=== PATIENT | male | born 1965 | race Caucasian/White ===

== ENCOUNTER 2023-08-18 22:13 | Emergency (ER) | payer OTHER ==
[~2023-08-18] VITALS: Ht 177.8 cm; Wt 94.8 kg
[2023-08-18 22:33] LABS: BASO % 0.7 % (0.0-1.0); EOS # 0.4 10*3/uL (0.0-0.4); EOS % 6.8 % (1.0-4.0); HEMATOCRIT 41.5 % (42.0-52.0); LYMPH # 2.5 10*3/uL (1.3-4.4); MEAN CELL VOLUME 88.9 fl (80.0-94.0); MEAN CORPUSCULAR HGB 27.8 pg (27.0-31.0); MEAN CORPUSCULAR HGB CONC 31.3 g/dl (33.0-37.0); MONO # 0.5 10*3/uL (0.1-1.0); MONO % 8.2 % (3.0-9.0); NEUT # 2.4 10*3/uL (2.3-7.9); NEUT % 41.1 % (47.0-73.0); PLATELET COUNT AUTOMATED 197 10*3/uL (130-400); RED BLOOD COUNT 4.67 10*6/uL (4.50-5.90); RED CELL DISTRI WIDTH 13.1 % (0-14.5); WHITE BLOOD COUNT 5.9 10*3/uL (4.8-10.8)
[2023-08-18 22:52] LABS: BUN 10 mg/dl (9-23); CHLORIDE 106 mmol/L (98-107); POTASSIUM 4.2 mmol/L (3.4-5.1)
[2023-08-18 22:53] LABS: ETHYL ALCOHOL < 3.0 mg/dl (<3)
[2023-08-18 23:15] LABS: URINE AMPHETAMINES Negative (1000ng/ml); URINE BARBITURATES Negative (200ng/ml); URINE BENZODIAZEPINES Negative (200ng/ml); URINE CANNABINOIDS (THC) Negative (50ng/ml); URINE COCAINE Negative (300ng/ml); URINE METHADONE Negative (300ng/ml); URINE OPIATES Negative (300ng/ml); URINE PHENCYCLIDINE Negative (25ng/ml)
[2023-08-18] MEDS ORDERED: hydrOXYzine pamoate 25 MG CAP PO ONE (23:20)
[2023-08-18] MEDS ORDERED: Ketorolac Tromethamine 30 MG/ML VIAL IM ONE (23:20)
== END 2023-08-19 01:04 ==
LOC: ED 22:13
PROVIDERS: Internal Medicine
DX: M79.671 Pain in right foot (principal); M25.552 Pain in left hip; M25.551 Pain in right hip; Z88.5 Allergy status to narcotic agent; W19.XXXA Unspecified fall, initial encounter

== ENCOUNTER 2024-02-24 17:58 | Emergency (ER) | payer OTHER ==
[~2024-02-24] VITALS: Ht 177.8 cm; Wt 99.8 kg
[2024-02-24 18:51] LABS: BASO % 0.4 % (0.0-1.0); EOS # 0.3 10*3/uL (0.0-0.4); EOS % 2.4 % (1.0-4.0); HEMATOCRIT 40.4 % (42.0-52.0); MEAN CELL VOLUME 84.7 fl (80.0-94.0); MEAN CORPUSCULAR HGB 28.5 pg (27.0-31.0); MEAN CORPUSCULAR HGB CONC 33.7 g/dl (33.0-37.0); MEAN PLATELET VOLUME 10.2 fl (9.6-12.3); MONO # 0.7 10*3/uL (0.1-1.0); NEUT # 7.7 10*3/uL (2.3-7.9); NEUT % 68.1 % (47.0-73.0); PLATELET COUNT AUTOMATED 237 10*3/uL (130-400); RED BLOOD COUNT 4.77 10*6/uL (4.50-5.90); RED CELL DISTRI WIDTH 12.9 % (0-14.5); WHITE BLOOD COUNT 11.2 10*3/uL (4.8-10.8)
[2024-02-24 19:00] LABS: BUN 14 mg/dl (9-23); CHLORIDE 106 mmol/L (98-107); POTASSIUM 3.8 mmol/L (3.4-5.1)
[2024-02-24 19:03] LABS: ETHYL ALCOHOL < 3.0 mg/dl (<3)
[2024-02-24 19:46] LABS: BILIRUBIN 2+ (Negative); BLOOD Negative (Negative); CLARITY Clear (Clear); COLOR Dark Yellow (Yellow); GLUCOSE Negative (Negative); KETONE Trace (Negative); LEUKO ESTERASE Trace (Negative); NITRITE Negative (Negative); PH 5.5 (4.5-8.0); SPECIFIC GRAVITY >= 1.030 (1.001-1.030)
[2024-02-24 19:53] LABS: BACTERIA 1+; MUCOUS 2+
[2024-02-24 19:54] LABS: COARSE GRANULAR CAST 0-2; URINE AMPHETAMINES Negative (1000ng/ml); URINE BARBITURATES Negative (200ng/ml); URINE BENZODIAZEPINES Negative (200ng/ml); URINE CANNABINOIDS (THC) Negative (50ng/ml); URINE COCAINE Negative (300ng/ml); URINE METHADONE Negative (300ng/ml); URINE OPIATES Negative (300ng/ml); URINE PHENCYCLIDINE Negative (25ng/ml)
== END 2024-02-24 20:25 | disposition home or self-care (01) ==
LOC: ED 17:58
PROVIDERS: Physician Assistant Medical
DX: R55 Syncope and collapse (principal); Z88.5 Allergy status to narcotic agent

== ENCOUNTER 2024-05-16 13:46 | Observation (INO) | payer OTHER ==
[~2024-05-16] VITALS: Ht 178 cm; Wt 89.9 kg
[2024-05-16 13:57] VITALS: BP 92/68
[2024-05-16 14:23] LABS: BASO % 0.6 % (0.0-1.0); EOS # 0.1 10*3/uL (0.0-0.4); HEMATOCRIT 43.6 % (42.0-52.0); MEAN CORPUSCULAR HGB 27.6 pg (27.0-31.0); MEAN CORPUSCULAR HGB CONC 32.8 g/dl (33.0-37.0); MEAN PLATELET VOLUME 10.6 fl (9.6-12.3); MONO # 0.5 10*3/uL (0.1-1.0); MONO % 6.8 % (3.0-9.0); NEUT # 4.8 10*3/uL (2.3-7.9); NEUT % 66.4 % (47.0-73.0); PLATELET COUNT AUTOMATED 238 10*3/uL (130-400); RED BLOOD COUNT 5.19 10*6/uL (4.50-5.90); RED CELL DISTRI WIDTH 13.1 % (0-14.5); WHITE BLOOD COUNT 7.2 10*3/uL (4.8-10.8)
[2024-05-16] MEDS ORDERED: SODIUM CHLORIDE 0.9% 1,000 ML IV ONE (14:35)
[2024-05-16 14:45] LABS: ALKALINE PHOSPHATASE 64 U/L (46-116); BUN 13 mg/dl (9-23); CHLORIDE 103 mmol/L (98-107); ETHYL ALCOHOL < 3.0 mg/dl (<3); POTASSIUM 3.1 mmol/L (3.4-5.1); SGPT/ALT 32 U/L (5-49)
[2024-05-16] MEDS ORDERED: POTASSIUM CHLORIDE 20 MEQ TAB PO ONE (15:20)
[2024-05-16 15:27] VITALS: BP 127/74
[2024-05-16 16:53] VITALS: BP 125/75
[2024-05-16] MEDS ORDERED: MIRTAZAPINE15 M2 PO (16:54)
[2024-05-16] MEDS ORDERED: METHYLPHENIDATE5 M1 PO (16:54)
[2024-05-16] MEDS ORDERED: NEURONTIN300 MG PO (16:54)
[2024-05-16] MEDS ORDERED: QUETIAPINE FUM300 M1 PO (16:54)
[2024-05-16] MEDS ORDERED: PANTOPRAZOLE SO40 MG PO (16:55)
[2024-05-16] MEDS ORDERED: NATURE'S BLEND100 M2 PO (16:55)
[2024-05-16] MEDS ORDERED: BENZTROPINE ME0.5 MG PO (16:55)
[2024-05-16] MEDS ORDERED: TRAZODONE100 MG PO (16:55)
[2024-05-16 17:33] LABS: BILIRUBIN Negative (Negative); BLOOD Negative (Negative); CLARITY Clear (Clear); COLOR Dark Yellow (Yellow); GLUCOSE Negative (Negative); KETONE 1+ (Negative); LEUKO ESTERASE Trace (Negative); NITRITE Negative (Negative); SPECIFIC GRAVITY >= 1.030 (1.001-1.030)
[2024-05-16 17:41] LABS: BACTERIA 2+; MUCOUS 1+
[2024-05-16 17:44] LABS: URINE AMPHETAMINES Positive (1000ng/ml); URINE BARBITURATES Negative (200ng/ml); URINE BENZODIAZEPINES Negative (200ng/ml); URINE CANNABINOIDS (THC) Negative (50ng/ml); URINE COCAINE Negative (300ng/ml); URINE METHADONE Negative (300ng/ml); URINE OPIATES Negative (300ng/ml); URINE PHENCYCLIDINE Negative (25ng/ml)
[2024-05-16] MEDS ORDERED: ASPIRIN, CHEWABLE 81 MG TAB PO ONE (18:20)
[2024-05-16 20:24] VITALS: BP 122/86
[2024-05-16 20:35] VITALS: BP 126/84
[2024-05-16] MEDS ORDERED: ACETAMINOPHEN 650 MG SUPP R PRN (20:45)
[2024-05-16] MEDS ORDERED: BISACODYL 10 MG SUPP R PRN (20:45)
[2024-05-16] MEDS ORDERED: Magnesium Hydroxide 30 ML UDC PO PRN (20:45)
[2024-05-16] MEDS ORDERED: ACETAMINOPHEN 325 MG TAB PO PRN (20:45)
[2024-05-16] MEDS ORDERED: BISACODYL 5 MG TAB PO PRN (20:45)
[2024-05-16] MEDS ORDERED: Ondansetron Hydrochloride 4 MG/2 ML VIAL IV PRN (20:45)
[2024-05-16] MEDS ORDERED: Ziprasidone Mesylate 20 MG VIAL IM ONE ×2 (21:25→21:38)
[2024-05-16] MEDS ORDERED: DIAZEPAM 10 MG/2 ML SYR IV ONE (21:25)
[2024-05-16] MEDS ORDERED: DIAZEPAM 2 ML IV ONE (21:37)
[2024-05-16] MEDS ORDERED: Water, Sterile 10 ML VIAL ONE (21:39)
[2024-05-16] MEDS ORDERED: Technetium Tc 99M Tetrofosmi 0.23 MG KIT IJ SCH (21:45)
[2024-05-16] MEDS ORDERED: ATORVASTATIN CALCIUM 80 MG TAB PO SCH (22:00)
[2024-05-17] VITALS: BP 150/59
[2024-05-17 02:20] VITALS: BP 143/97
[2024-05-17] MEDS ORDERED: DIAZEPAM 10 MG/2 ML SYR IV ONE ×2 (02:25→07:55)
[2024-05-17] MEDS ORDERED: Regadenoson 0.4 MG/5 ML SYR IV ONE (05:21)
[2024-05-17] MEDS ORDERED: Pantoprazole Sodium 40 MG TAB PO SCH (06:00)
[2024-05-17 06:27] LABS: BASO % 0.4 % (0.0-1.0); EOS # 0.3 10*3/uL (0.0-0.4); EOS % 5.7 % (1.0-4.0); HEMATOCRIT 41.7 % (42.0-52.0); MEAN CELL VOLUME 84.4 fl (80.0-94.0); MEAN CORPUSCULAR HGB 27.7 pg (27.0-31.0); MEAN CORPUSCULAR HGB CONC 32.9 g/dl (33.0-37.0); MONO # 0.4 10*3/uL (0.1-1.0); MONO % 7.8 % (3.0-9.0); NEUT # 1.9 10*3/uL (2.3-7.9); NEUT % 39.6 % (47.0-73.0); PLATELET COUNT AUTOMATED 197 10*3/uL (130-400); RED BLOOD COUNT 4.94 10*6/uL (4.50-5.90); RED CELL DISTRI WIDTH 13.2 % (0-14.5); WHITE BLOOD COUNT 4.9 10*3/uL (4.8-10.8)
[2024-05-17 07:27] LABS: ALKALINE PHOSPHATASE 55 U/L (46-116); BUN 12 mg/dl (9-23); CHLORIDE 106 mmol/L (98-107); CHOLESTEROL 129 mg/dL (<200); FREE T4 1.46 ng/dl (0.89-1.76); LDL CHOLESTEROL 75 mg/dL (9-159); POTASSIUM 3.6 mmol/L (3.4-5.1); SGPT/ALT 28 U/L (5-49); TOTAL PROTEIN 6.2 gm/dL (6.0-8.0); TRIGLYCERIDES 50 mg/dl (<150)
[2024-05-17 08:00] VITALS: BP 141/91
[2024-05-17] MEDS ORDERED: Thiamine 100 MG TAB PO SCH (10:00)
[2024-05-17] MEDS ORDERED: BENZTROPINE MESYLATE 0.5 MG TAB PO SCH (10:00)
[2024-05-17] MEDS ORDERED: Enoxaparin Sodium 40 MG/0.4 ML SYR SC SCH (10:00)
[2024-05-17] MEDS ORDERED: GABAPENTIN 300 MG CAP PO SCH (10:00)
[2024-05-17] MEDS ORDERED: ASPIRIN ENTERIC COATED 81 MG TAB PO SCH (10:00)
[2024-05-17] MEDS ORDERED: Mirtazapine 15 MG TAB PO SCH (10:00)
[2024-05-17] MEDS ORDERED: QUETIAPINE FUMARATE 300 MG TAB PO SCH (10:00)
[2024-05-17 12:00] VITALS: BP 115/79
[2024-05-17 16:00] VITALS: BP 113/64
[2024-05-17 20:00] VITALS: BP 119/79
[2024-05-18] MEDS ORDERED: ASPIRIN ADULT L81 M2 PO (11:10)
[2024-05-18] MEDS ORDERED: ATORVASTATIN CA80 M1 PO (11:10)
== END 2024-05-17 23:55 | disposition left against medical advice (07) ==
LOC: ED 13:46 → EDHOLD 18:20 → 4E 18:20
PROVIDERS: Internal Medicine; Student in an Organized Health Care Education/Training Program; ADMIT Internal Medicine; ATTEND Internal Medicine
DX: I21.4 Non-ST elevation (NSTEMI) myocardial infarction (principal); R00.0 Tachycardia, unspecified; F15.10 Other stimulant abuse, uncomplicated; E87.6 Hypokalemia; N17.0 Acute kidney failure with tubular necrosis; R73.9 Hyperglycemia, unspecified; R74.01 Elevation of levels of liver transaminase levels; D64.9 Anemia, unspecified; F32.A Depression, unspecified; K21.9 Gastro-esophageal reflux disease without esophagitis; F20.9 Schizophrenia, unspecified; G62.9 Polyneuropathy, unspecified; Z88.5 Allergy status to narcotic agent; Z79.82 Long term (current) use of aspirin; Z79.899 Other long term (current) drug therapy

== ENCOUNTER 2024-05-29 14:09 | Emergency (ER) | payer OTHER ==
[~2024-05-29] VITALS: Wt 86.2 kg
[~2024-05-29 14:09] MED LIST: ASPIRIN ADULT L81 M2 PO; ATORVASTATIN CA80 M1 PO; BENZTROPINE ME0.5 MG PO; DIAZEPAM5 MG PO; DULOXETINE HCL60 MG PO; METHYLPHENIDATE5 M1 PO; MIRTAZAPINE15 M2 PO; NATURE'S BLEND100 M2 PO; NEURONTIN300 MG PO; PANTOPRAZOLE SO40 MG PO; QUETIAPINE FUM300 M1 PO; RAMELTEON8 MG PO; RISPERIDONE1 M1 BC; TRAZODONE100 MG PO; VISTARIL IM
[2024-05-29] MEDS ORDERED: Haloperidol Lactate 5 MG/ML AMP IM ONE (14:15)
[2024-05-29] MEDS ORDERED: diazePAM 10 MG/2 ML SYR IM ONE (14:15)
[2024-05-29 14:31] LABS: BASO % 0.5 % (0.0-1.0); EOS # 0.2 10*3/uL (0.0-0.4); EOS % 2.8 % (1.0-4.0); HEMATOCRIT 42.5 % (42.0-52.0); MEAN CELL VOLUME 84.8 fl (80.0-94.0); MEAN CORPUSCULAR HGB 27.7 pg (27.0-31.0); MEAN CORPUSCULAR HGB CONC 32.7 g/dl (33.0-37.0); MEAN PLATELET VOLUME 10.2 fl (9.6-12.3); MONO # 0.7 10*3/uL (0.1-1.0); MONO % 8.3 % (3.0-9.0); NEUT # 5.2 10*3/uL (2.3-7.9); NEUT % 60.7 % (47.0-73.0); PLATELET COUNT AUTOMATED 241 10*3/uL (130-400); RED BLOOD COUNT 5.01 10*6/uL (4.50-5.90); RED CELL DISTRI WIDTH 12.9 % (0-14.5); WHITE BLOOD COUNT 8.6 10*3/uL (4.8-10.8)
[2024-05-29 14:56] LABS: BUN 13 mg/dl (9-23); CHLORIDE 102 mmol/L (98-107); POTASSIUM 3.8 mmol/L (3.4-5.1)
[2024-05-29 14:57] LABS: ETHYL ALCOHOL < 3.0 mg/dl (<3)
[2024-05-29 20:58] LABS: BILIRUBIN Negative (Negative); BLOOD Negative (Negative); CLARITY Clear (Clear); COLOR Yellow (Yellow); GLUCOSE Negative (Negative); KETONE Trace (Negative); LEUKO ESTERASE Negative (Negative); NITRITE Negative (Negative); PH 7.5 (4.5-8.0); SPECIFIC GRAVITY 1.015 (1.001-1.030); UROBILINOGEN 0.2 E.U./dl (0.0-1.0)
[2024-05-29 21:06] LABS: URINE AMPHETAMINES Positive (1000ng/ml); URINE BARBITURATES Negative (200ng/ml); URINE BENZODIAZEPINES Positive (200ng/ml); URINE CANNABINOIDS (THC) Negative (50ng/ml); URINE COCAINE Negative (300ng/ml); URINE METHADONE Negative (300ng/ml); URINE OPIATES Negative (300ng/ml); URINE PHENCYCLIDINE Negative (25ng/ml)
[2024-05-29 21:10] LABS: BACTERIA TRACE
[2024-05-29] MEDS ORDERED: LORazepam 2 MG TAB PO ONE (22:10)
== END 2024-05-30 09:01 | disposition short-term general hospital (02) ==
LOC: ED 14:09
PROVIDERS: Emergency Medicine
DX: F29 Unspecified psychosis not due to a substance or known physiological condition (principal); Z20.822 Contact with and (suspected) exposure to COVID-19; F19.10 Other psychoactive substance abuse, uncomplicated; Z88.5 Allergy status to narcotic agent; Z79.899 Other long term (current) drug therapy

== ENCOUNTER 2024-06-11 19:57 | Emergency (ER) | payer OTHER ==
[~2024-06-11] VITALS: Ht 182.9 cm; Wt 94.8 kg
[2024-06-11] MEDS ORDERED: MELATONIN5 M6 PO (21:34)
== END 2024-06-11 21:50 | disposition home or self-care (01) ==
LOC: ED 19:57
DX: G62.9 Polyneuropathy, unspecified (principal); G47.00 Insomnia, unspecified; Z79.82 Long term (current) use of aspirin; Z79.899 Other long term (current) drug therapy; Z88.5 Allergy status to narcotic agent

== ENCOUNTER 2024-06-20 10:13 | Emergency (ER) | payer OTHER ==
[~2024-06-20] VITALS: Ht 177.8 cm; Wt 86.2 kg
[~2024-06-20 10:13] MED LIST changes: +MELATONIN5 M6 PO
[2024-06-20] MEDS ORDERED: HYDROXYZINE PAM25 M1 PO (10:56)
[2024-06-20] MEDS ORDERED: BUSPAR15 MG PO (10:57)
[2024-06-20] MEDS ORDERED: TRAZODONE150 MG PO (10:57)
[2024-06-20] MEDS ORDERED: Acetaminophen/Hydrocodone 5 MG/325 MG TABLET PO ONE (11:20)
[2024-06-20] MEDS ORDERED: NAPROSYN500 MG PO (19:46)
== END 2024-06-20 11:39 | disposition home or self-care (01) ==
LOC: ED 10:13
DX: G89.29 Other chronic pain (principal); M79.604 Pain in right leg; M79.605 Pain in left leg; F32.A Depression, unspecified; K21.9 Gastro-esophageal reflux disease without esophagitis; F15.10 Other stimulant abuse, uncomplicated; Z88.5 Allergy status to narcotic agent; Z98.890 Other specified postprocedural states

== ENCOUNTER 2024-06-20 14:30 | Emergency (ER) | payer OTHER ==
[~2024-06-20] VITALS: Ht 177.8 cm; Wt 89.4 kg
[~2024-06-20 14:30] MED LIST changes: +BUSPAR15 MG PO; +HYDROXYZINE PAM25 M1 PO; +TRAZODONE150 MG PO
[2024-06-20 15:25] LABS: BASO % 0.2 % (0.0-1.0); MEAN CELL VOLUME 83.9 fl (80.0-94.0); MEAN CORPUSCULAR HGB 28.1 pg (27.0-31.0); MEAN CORPUSCULAR HGB CONC 33.5 g/dl (33.0-37.0); MEAN PLATELET VOLUME 9.9 fl (9.6-12.3); MONO # 0.4 10*3/uL (0.1-1.0); NEUT # 4.5 10*3/uL (2.3-7.9); NEUT % 77.8 % (47.0-73.0); PLATELET COUNT AUTOMATED 243 10*3/uL (130-400); RED BLOOD COUNT 4.77 10*6/uL (4.50-5.90); RED CELL DISTRI WIDTH 13.6 % (0-14.5); WHITE BLOOD COUNT 5.8 10*3/uL (4.8-10.8)
[2024-06-20 15:54] LABS: BUN 18 mg/dl (9-23); CHLORIDE 105 mmol/L (98-107); CPK 72 U/L (34-171); POTASSIUM 3.7 mmol/L (3.4-5.1)
[2024-06-20 15:55] LABS: ETHYL ALCOHOL < 3.0 mg/dl (<3)
[2024-06-20 16:15] LABS: BILIRUBIN Negative (Negative); BLOOD Negative (Negative); CLARITY Clear (Clear); COLOR Yellow (Yellow); GLUCOSE Negative (Negative); KETONE Negative (Negative); LEUKO ESTERASE Negative (Negative); NITRITE Negative (Negative); PH 5.5 (4.5-8.0); UROBILINOGEN 0.2 E.U./dl (0.0-1.0)
[2024-06-20 16:23] LABS: URINE AMPHETAMINES Negative (1000ng/ml); URINE BARBITURATES Negative (200ng/ml); URINE BENZODIAZEPINES Negative (200ng/ml); URINE CANNABINOIDS (THC) Negative (50ng/ml); URINE COCAINE Negative (300ng/ml); URINE METHADONE Negative (300ng/ml); URINE OPIATES Positive (300ng/ml); URINE PHENCYCLIDINE Negative (25ng/ml)
[2024-06-20 16:43] LABS: BACTERIA TRACE; MUCOUS 1+
[2024-06-20] MEDS ORDERED: IBUPROFEN 400 MG TAB PO ONE (18:00)
[2024-06-20] MEDS ORDERED: NAPROSYN500 MG PO (19:46)
== END 2024-06-20 19:51 | disposition home or self-care (01) ==
LOC: ED 14:30
PROVIDERS: Nurse Practitioner Family
DX: R04.0 Epistaxis (principal); K21.9 Gastro-esophageal reflux disease without esophagitis; F32.A Depression, unspecified; F11.20 Opioid dependence, uncomplicated; F15.10 Other stimulant abuse, uncomplicated; Z88.5 Allergy status to narcotic agent; Z98.890 Other specified postprocedural states